=== PATIENT | male | born 1940 | race Caucasian/White ===

== ENCOUNTER 2017-09-11 11:25 | Emergency (ER) | payer MEDICARE, BC ==
[~2017-09-11] VITALS: Ht 182.9 cm; Wt 72.7 kg
[~2017-09-11 11:25] MED LIST: AMOXICILLIN 8751 TAB PO; FOLIC ACID 40400 MCG PO; IRON325 M1 PO; LORTAB 7.5/5001 TAB PO; MOTRIN 200200 MG/TAB PO; NKDA; NO HOME MEDICATIONS; TYLENOL 325MG325 MG PO; VITAMIN C BUFF500 MG PO
[2017-09-11 11:26] VITALS: TEMP 98
[2017-09-11 13:02] LABS: BASO % 0.2 % (0.0-2.0); EOS % 0.7 % (0-4.0); GRAN # 3.2 (1.4-6.5); GRAN % 72.4 % (42.2-75.2); HEMATOCRIT 41.9 % (42.0-52.0); HEMOGLOBIN 14.3 g/dl (13.5-18.0); LYMPH # 0.7 (1.2-3.4); LYMPH % 15.4 % (20.0-51.0); MEAN CELL VOLUME 100 fl (80.0-100.0); MEAN CORPUSCULAR HEMOGLOBIN 34 pg (27.0-31.0); MEAN CORPUSCULAR HGB CONC 34 g/dl (33.0-37.0); MEAN PLATELET VOLUME 8.6 fl (7.4-10.4); MONO # 0.5 (0.1-0.6); MONO % 11.1 % (1.7-9.3); PLATELET COUNT 101 K/mm3 (130-400); REDCELL DISTRIBUTION WIDTH-CV 12.4 % (11.5-14.5); WHITE BLOOD COUNT 4.4 K/mm3 (4.8-10.8)
[2017-09-11 13:09] LABS: ADJUSTED CALCIUM 9.1 mg/dL (8.4-10.2); ALBUMIN 4.1 gm/dL (3.5-5.0); BILIRUBIN,TOTAL 1.1 mg/dL (0.0-1.0); CALCIUM 9.2 mg/dL (8.4-10.2); CREATININE, serum 0.86 mg/dL (0.66-1.25); TOTAL PROTEIN 7.2 gm/dL (6.4-8.2)
[2017-09-11] MEDS ORDERED: NORCO 325 MG-51 TAB PO (15:43)
[2017-09-11] MEDS ORDERED: PREDNISONE20 MG PO (15:43)
[2017-09-11 15:51] VITALS: BP 157/83; PULSE 88
== END 2017-09-11 15:52 | disposition home or self-care (01) ==
LOC: COL.ER 11:25
PROVIDERS: Physician Assistant Medical
DX: J02.9 Acute pharyngitis, unspecified (principal)
CPT/HCPCS: J7030; J7512; Q9967

== ENCOUNTER → 2020-05-21 | Outpatient (CLI) | payer MEDICARE, BC ==
[~2020-05-21] MED LIST changes: +NORCO 325 MG-51 TAB PO; +PREDNISONE20 MG PO
== END ==
LOC: COL.RAD 10:16
DX: D69.6 Thrombocytopenia, unspecified (principal); R16.1 Splenomegaly, not elsewhere classified

== ENCOUNTER → 2023-08-30 | Outpatient (CLI) | payer MEDICARE, BC ==
[~2023-08-30] MED LIST changes: +B COMPLEX #11 TA1 PO; +B-121000 MCG PO; +ELIQUIS 5MG PO; +NORVASC 10MG10 MG PO; +OXYGEN NASAL.CANN; +REVATIO20 MG PO
== END ==
LOC: CANSCHCLI → COL.VAS 07:30 → COL.RAD 07:30 → COL.VAS 09:00
DX: I51.7 Cardiomegaly (principal); I34.0 Nonrheumatic mitral (valve) insufficiency; I35.1 Nonrheumatic aortic (valve) insufficiency; Z86.711 Personal history of pulmonary embolism